=== PATIENT | female | born 1940 | race Caucasian/White ===

== ENCOUNTER 2017-08-30 16:28 | Inpatient (IN) | payer MEDICARE, BC, OTHER ==
[~2017-08-30] VITALS: Ht 157.5 cm; Wt 64.9 kg
[2017-08-30] MEDS ORDERED: CATAPRES0.1 MG PO (16:56)
[2017-08-30] MEDS ORDERED: COLACE100 MG PO (16:57)
[2017-08-30] MEDS ORDERED: ENOXAPARIN40 MG/0.1 SUBQ (16:59)
[2017-08-30] MEDS ORDERED: GABAPENTIN 100100 MG PO (17:02)
[2017-08-30] MEDS ORDERED: HYDRALAZINE 2525 MG PO (17:03)
[2017-08-30] MEDS ORDERED: KLOR-CON 1010 MEQ PO (17:03)
[2017-08-30] MEDS ORDERED: ONDANSETRON HCL4 M2 PO (17:04)
[2017-08-30] MEDS ORDERED: PRINIVIL20 M1 PO (17:04)
[2017-08-30] MEDS ORDERED: OXYCODONE HCL 55 MG PO (17:05)
[2017-08-30] MEDS ORDERED: MIRALAX17 GM PO (17:06)
[2017-08-30] MEDS ORDERED: SALONPAS PATCH1 EAC1 TOP (17:07)
[2017-08-30] MEDS ORDERED: VITAMIN D3400 UNIT PO (17:08)
[2017-08-30] MEDS ORDERED: SYSTANE ULTRA 010 ML OPHTHALMIC (17:09)
[2017-08-30 19:30] VITALS: BP 118/47
--- NOTE | 2017-08-31 01:38 | NUR ---
ASSUMED CARE AT ADMISSION TO ROOM 328 AT 1930 PER W/C. ASSIST FROM ER STAFF GETTING PATIENT FROM PRIVATE CAR TO W/C THEN THEY TRANSPORTED HER TO OUR FLOOR. UP WITH MOD ASSIST, GAIT BELT, WALKER, AND NWB TO LLE. VOIDED PER BSC. PATIENT VERY NERVOUS ABOUT TRANSFERRING. SUPPORT GIVEN. ABLE TO MOVE RIGHT FOOT TO PIVOT FROM BED TO BSC, BUT HAS TROUBLE MOVING BACKWARDS TO BED. ABLE TO LIFT LLE VERY EASILY. LLE HAS POSTERIOR SPLINT, DRESSING AND CECELIA WRAP; THIS NOT TO GET WET NOR DRESSING CHANGED. REPORTS THAT IN THE LAST MONTH SHE DID FALL AND GOT ASSIST TO GET UP. USED WALKER AT HOME. ALSO HAS KNEE SCOOTER THAT SHE HAS NOT HAD MUCH PRACTICE WITH; THIS PUT ASIDE UNTIL EVALUATED FROM THERAPIES. 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 PATIENT STATES SHE HAS HAD A ROTATOR CUFF TEAR ON HER RIGHT SHOULDER, BUT HAS NOT HAD IT REPAIRED. SHE STATES SHE HAS BEEN IN P.T. TRYING TO IMPROVE HER ROM. CURRENTLY SHE CAN ONLY RAISE HER ARM ABOUT SHOULDER HEIGHT. SHE HAS NEUROPATHY IN HER RIGHT HAND, AND IT APPEARS TO HAVE SLIGHT CONTRACTURE. ALSO STATES THAT HER MOTHER HAD TB WHEN SHE WAS A CHILD (STATES HER MOM WAS BORN IN 1905) BUT PATIENT WAS TESTED AND WAS NEGATIVE. PATIENT WAS SENT TO LIVE WITH HER GRANDPARENTS WHILE HER MOTHER GOT TREATMENT FOR HER TB. STATES THAT SHE SIGNED SOME ADVANCED DIRECTIVE PAPERS AT [facility], BUT SHE WAS SO SLEEPY THAT SHE WANTS TO SIGN ANOTHER SET NOW THAT SHE IS MORE ALERT. ASSESSMENT COMPLETED. PAPERS SIGNED. EDUCATED ABOUT REHAB ROUTINE. HOURLY ROUNDS CONTINUE. BED ALARM ON. CALL LITE IN REACH.
[2017-08-31 03:57] LABS: HEMATOCRIT 26.5 % (37.0-47.0); HEMOGLOBIN 8.9 gm/dL (12.0-15.0); MCH 31.6 pg (26.0-34.0); MCHC 33.8 g/dL (28.0-37.0); MCV 93.6 fL (80.0-100.0); MPV 8.3 fl. (7.2-11.1); RBC 2.83 mil/uL (4.20-5.00); RDW-CV 15.1 % (10.5-14.5); WBC 6.7 thou/uL (4.0-11.0)
[2017-08-31 04:20] LABS: CALCIUM 8.5 mg/dL (8.5-10.1)
--- NOTE | 2017-08-31 06:04 | NUR ---
SLEPT MUCH OF THE SHIFT. TURNS SELF, SLEPT ON SIDE WITH PILLOW PROPPING. LLE ELEVATED ON TWO PILLOWS. POST SPLINT C/D/I. VOIDED ONCE PER BSC. NO FURTHER C/O PAIN. HOURLY ROUNDS CONTINUE. BED ALARM ON. CALL LITE IN REACH.
[2017-08-31 08:30] VITALS: BP 112/35
[2017-08-31 11:10] VITALS: BP 111/48
--- NOTE | 2017-08-31 15:20 | NUR ---
ASSUMED CARE AT 0730. ALERT ORIENTED PLEASANT COOPERATIVE. HX OF L FOREFOOT REPAIR, HAS SPLINT AND ACEWRAP TO L LEG. NWBLLE. TRANSFERS WITH 1 ASSIST G BELT WALKER FROM W/C TO [facility] TO VOID, ABLE TO DO HYGEINE BUT NEEDS SOME ASSIST WITH CLOTHING ADJUSTMENTS L HAND HAS SOME NEUROPATHY PRESENT. MEDICATED X 2 WITH 5 MG. OXY IR BEFORE P.T. SESSIONS. ICE PACK APPLIED TO L UPPER LEG PRN. PROPELLS SELF IN W/C TO DR FOR MEALS. PARTICIPATING IN THERAPIES TODAY. FEEDS SELF APPETITE FAIR BREAKFAST GOOD AT LUNCH. RESTING IN BED AFTER THERAPIES COMPLETED.
[2017-08-31 20:00] VITALS: BP 113/47
--- NOTE | 2017-08-31 23:14 | NUR ---
ASSUMED CARE AT 1930. PATIENT RESTING IN BED WITH LLE ELEVATED ON TWO PILLOWS. ABLE TO LIFT LEG OFF BED AND ABLE TO GET BOTH LEGS INTO BED HERSELF. UP WITH MIN ASSIST TO RISE, NEEDS CUEING, GAIT BELT, WALKER. TO BR PER W/C THEN VOIDED PER TOILET. ABLE TO DO OWN HYGIENE AND APPLIED PERIPAD WITH SETUP. C/O PAIN, MEDICATED AT HS. SEE JUN. TAKES PILLS WHOLE WITH WATER. TOOK MIRILAX THIS PM IN [place]. HAD SLIGHT TEMP ELEVATION 100.2 MAX. GIVEN APAP AND I.S ENCOURAGED. EXTRA COVERS AND ROBE REMOVED (LEAVING TWO SHEETS AND BATH BLANKET COVERS). AT 2205 TEMP WAS 98.6. WHEN GETTING BACK INTO BED FROM TOILETING, PATIENT SWEPT AT CHUX ON BED STATING, "THERE IS A BUG THERE" NO BUG THERE, BUT THERE WAS A VERY SMALL BIT OF FUZZ THAT WOULD MATCH THE COLOR OF HER ROBE. DENIED OTHER VISUAL ISSUES. HOURLY ROUNDS CONTINUE. BED ALARM ON. CALL LITE IN REACH.
--- NOTE | 2017-09-01 05:17 | NUR ---
SLEPT MOST OF THE NIGHT. UP TO VOID ONLY ONCE AT HS. TURNS SELF. PREFERS TO LIE ON BACK WITH LLE ELEVATED ON TWO PILLOWS. NO C/O PAIN. HOURLY ROUNDS CONTINUE. BED ALARM ON. CALL LITE IN REACH.
[2017-09-01 07:30] VITALS: BP 119/41
--- NOTE | 2017-09-01 10:34 | NUR ---
Nutrition: Pt admitted to rehab s/p forefoot surgery R/T hammer toe. H/o renal insuff, OA, GERD, HTN. Pt is eating 100% of Regular diet. Wt: 144#. Low nutrition risk. Will follow weekly.
--- NOTE | 2017-09-01 13:36 | NUR ---
ASSUMED CARE AT 0730. ALERT ORIENTED PLEASANT COOPERATIVE. HX OF L FOREFOOT REPAIR. HAS SPLINT AND CECELIA WRAP TO L LOWER LEG C/D/I. C & S ADEQUATE TO L FOOT. TRANSFERS WITH 1 ASSIST G BELT WALKER, NWCUAUHTEMOC. USING TOILET PER W/C GRAB BAR STAND PIVOT TO TOILET. NEEDS MIN ASSIST TO DO CLOTHING ADJUSTMENTS. ABLE TO DO HYGEINE HAS NEUROPATHY RT. HAND. MEDICATED X 1 FOR L FOOT PAIN BEFORE P.T. SESSION THIS A.M. FEEDS SELF WITH SET UP TAKES MEDS WITHOUT DIFFICULTY. USES CALL LIGHT APPROPRIATELY FOR ASSISTANCE. UP IN RECLINER WITH FEET ELEVATED. PROPELLS SELF TO DR PER W/C FOR MEALS.
--- NOTE | 2017-09-01 15:44 | NUR ---
PT. TOOK MIRALAX IN [place] THIS AFTERNOON HASNT HAD BM SINCE 08/28/17. HOURLY ROUNDING COMPLETED.
[2017-09-01 19:58] VITALS: BP 136/47
--- NOTE | 2017-09-01 22:14 | NUR ---
ASSUMED CARE AT 1930. PATIENT RESTING IN BED WITH LLE UP ON THREE PILLOWS. TAKES PILLS WHOLE WITH WATER. DENIES PAIN AT THIS TIME. UP TO TOILET VIA W/C. HAD LARGE SOFT BM. STAND PIVOT WITH CUEING. ABLE TO DO HYGIENE AFTER VOIDING, BUT HAD TROUBLE WITH HYGIENE AFTER BM, WITH NURSING COMPLETING HYGIENE. WORKING ON BALANCE WITH NBW LLE, RT HAND NEUROPATHY INTERFERES WITH HOLDING ONTO WALKER FOR BALANCE, AND NEEDS HELP WITH CLOTHING ADJUSTMENTS DUE TO BALANCE AND NEUROPATHY OF RT HAND. HIGHLY MOTIVATED AND IS WORKING HARD TO GAIN STRENGTH. HAD QUESTIONS ABOUT DISCHARGE DATE AND PENDING FOLLOW UP APPOINTMENT WITH SURGEON. REINFORCED PRIOR EDUCATION ABOUT TEAM MEETINGS, AND THAT [facility] WILL MAKE ARRANGEMENTS FOR FOLLOWUP APPOINTMENTS. VERBALIZED UNDERSTANDING BUT NEEDS REINFORCEMENT. HOURLY ROUNDS CONTINUE. BED ALARM ON. CALL LITE IN REACH.
--- NOTE | 2017-09-02 06:12 | NUR ---
SLEPT MOST OF THE NIGHT. HAD ONE BM PER TOILET. VOIDS PER TOILET. TRANSFERS FROM BED TO W/C THEN TO TOILET. GETTING STRONGER, BUT HAS TROUBLE WITH BALANCE WITH NWB OF LLE AND ADJUSTING CLOTHING. ABLE TO DO HYGIENE. MEDICATED FOR PAIN WITH RETURN TO SLEEP. HOURLY ROUNDS CONTINUE. BED ALARM ON. CALL LITE IN REACH.
[2017-09-02 07:44] VITALS: BP 155/53
--- NOTE | 2017-09-02 14:35 | NUR ---
ASSUMED CARE AT 0730. ALERT ORIENTED PLEASANT COOPERATIVE. HX OF L FOREFOOT REPAIR, CECELIA WRAP AND SPLINT INTACT FROM L KNEE TO TOES C AND S ADEQUATE. TRANSFERS WITH 1 ASSIST G BELT WALKER NWBLLE. VOIDS IN TOILET AND CAN DO HYGEINE AND CLOTHING ADJUSTMENTS GIVEN TIME. USES CALL LIGHT APPROPRIATELY FOR ASSIST. PARTICIPATING IN THERAPIES AND PROPELLS SELF IN W/C TO DR FOR MEALS. LLE ELEVATED IN W/C MEDICATED X 1 FOR PAIN BEFORE P.T. SESSION THIS A.M. SISTER HERE LATE AFTERNOON VISITING PT. LIZ DO N.P. ROUNDED. APPETITE GOOD FEEDS SELF AND NEEDS OCCASSIONAL ASSIST TO CUT MEAT SHE HAS NEUROPATHY RT. HAND.
[2017-09-02 20:10] VITALS: BP 123/39
[2017-09-02 21:26] VITALS: BP 137/51
--- NOTE | 2017-09-03 01:55 | NUR ---
ASSUMED CARE @ 1919-09/02-SATURDAY.AWAKE IN BED W/POSTERIOR SPLINT IN PLACE LEFT LE WRAPPED W/ CECELIA BANDAGE.HOB UP.LEFT LE ALREADY UP ON 2 PILLOWS @ 1919.BED ALARM ALREADY ON @ 1919.BRP PER W/C W/ 1 PERSON.NWB LEFT LE OBSERVED ON ALL TRANSFERS.TEMP-99.0 @ 2009.99.4 ORAL @ 2125.RECHECKED @ .4 ORAL.SEE PAIN MANAGEMENT @ 2150.TRANSFERS W/ MIN ASSIST W/ 1 PERSON.BRP PER W/C @ NIGHT.IND W/ TOILET HYGIENE BUT NEEDS ASSIST W/ CLOTHING ADJUSTMENTS.ON HOURLY ROUNDS.
--- NOTE | 2017-09-03 05:27 | NUR ---
SLEEPING SINCE 2300 BUT AWAKE 3X-2X FOR BRP PER W/C & ONCE @ 0400-TO REQUEST FOR PAIN MED.TOOK ONLY 90% COKE HS SNACKS.BRP X5-PER W/C.
[2017-09-03 08:11] VITALS: BP 140/56
--- NOTE | 2017-09-03 17:40 | NUR ---
SW met with pt to complete initial assessment, introduce self, and SW role. Plan for pt to dc home with sister; pt sister was bedside. Pt has cane, rolling walker, 4 ww with a seat, transport wc. Pt does not have any history of HH or SNF. SW oriented pt to rehab unit and discussed team conferences on Wednesdays. SW to continue to follow to assist with safe dc planning.
[2017-09-03 20:00] VITALS: BP 128/48
--- NOTE | 2017-09-04 05:37 | NUR ---
ASSUMED PT CARE AT 1930. PT ALERT AND ORIENTED X4, POLITE AND COOPERATIVE WITH CARES. PT LLE WITH POSTERIOR SPLINT AND WRAPPED WITH CECELIA BANDAGE. GAUZE DRESSING C/D/I. PT NWB TO LLE, OBSERVED ON ALL TRANSFERS, UP WITH MIN ASSIST OF ONE PERSON TO WHEELCHAIR. PT HAS BRP, UP X4 OVERNIGHT TO VOID. STOOL X2 THIS SHIFT. PT DOES OWN PERICARE BUT NEEDS ASSIST WITH CLOTHING ADJUSTMENTS. PRN PAIN MEDICATION TWICE THIS SHIFT FOR LEFT FOOT PAIN. CALL LIGHT AND FREQUENTLY USED ITEMS WITHIN REACH. USES CALL LIGHT APPROPRIATELY. HOURLY ROUNDING IN PROGRESS, WILL CONTINUE TO MONITOR.
[2017-09-04 08:00] VITALS: BP 127/47
--- NOTE | 2017-09-04 15:00 | NUR ---
SW met with pt to review team conference summary. Plan for pt to remain on rehab unit and continue therapies with team to reteam on Monday 09/11 with pt to dc home with sister on 09/12 and with services to follow. SW discussed team's recommendation for pt to be wc level at home; SW to arrange for order of wc. Pt has a BSC that she borrowed from a friend but she says she hopes she can get into her bathroom. Pt to have follow up ortho appt on Saturday 09/09 at 2:00pm at [facility]; SW to arrange transportation. Pt possibly could utilize services of [facility]. SW to follow up to assist with safe dc planning.
--- NOTE | 2017-09-04 18:34 | NUR ---
ASSUMED CARE AT 0730 PATIENT ALERT/ORIENTED, PAIN MEDS GIVEN X2 THIS SHIFT WITH GOOD RESULTS, TIME CHANGES TO PAIN MEDS NOTED/ORDERED BY MD. UP WITH ASSIST OF ONE, NWB TO LEFT LEG, CAST INTACT, TOES PINK/WARM. PARTICIPATED IN ALL THERAPIES TODAY, TO DINING ROOM FOR MEALS, BED/CHAIR ALARMS IN PLACE, CALL LIGHT IN REACH. HOURLY ROUNDING COMPLETED.
[2017-09-04 20:45] VITALS: BP 129/46
--- NOTE | 2017-09-05 05:47 | NUR ---
PT SLEPT FAIRLY WELL OVERNIGHT, UP TO BR TO VOID 5X THIS SHIFT. UP WITH GB TO WHEEL CHAIR WITH MIN SBA AND INTO BR TO VOID. HARD SPLINT CDI TO LBLE, NWB STATUS MAINTAINED TO LLE. OXY IR GIVEN X2 FOR CO LLE PAIN THIS SHIFT WITH GOOD RELIEF. SMALL BM OVERNIGHT, HEMORRHOIDS WITH SMALL AMOUNT OF BLEEDING. LLE ELEVATED ON PILLOW WHILE PT IN BED. ABLE TO USE CALL LITE AND MAKE NEEDS KNOWN, BED ALARM ON FOR SAFETY OVERNIGHT.
[2017-09-05 07:47] VITALS: BP 171/49
[2017-09-05 07:48] VITALS: BP 169/47
--- NOTE | 2017-09-05 15:20 | NUR ---
ASSUMED CARE AT 0730 PATIENT ALERT/ORIENTED, PAIN MEDS GIVEN FOR LEFT LEG PAIN WITH FAIR RELIEF, UP WITH ASSIST OF ONE AND WALKER, NWB TO LEFT LEG. PARTICIPATED IN ALL THERAPIES TODAY, TO DINING ROOM FOR MEALS, BED/CHAIR ALARMS IN PLACE, CALL LIGHT IN REACH, HOURLY ROUNDING COMPLETED.
[2017-09-05 20:22] VITALS: BP 114/39
--- NOTE | 2017-09-06 00:33 | NUR ---
ASSUMED CARE AT 1930. PATIENT RESTING IN BED WITH LT LEG UP ON TWO PILLOWS. UP WITH ONE, GAIT BELT, WALKER, STAND PIVOT. NWB LLE. TO TOILET VIA W/C. MUCH IMPROVED SINCE THE WEEKEND. ABLE TO ADJUST CLOTHING PER SELF WHILE HOLDING ONTO GRAB BARS. MUCH MORE CONFIDENCE. MEDICATED FOR PAIN AT HS. SEE JUN. HOURLY ROUNDS CONTINUE. BED ALARM ON. CALL LITE IN REACH.
--- NOTE | 2017-09-06 05:44 | NUR ---
SLEPT MOST OF THE NIGHT WITH LEFT LEG UP ON THREE PILLOWS. POST SPLINT REMAINS C/D/I. TOES PINK. MEDICATED FOR PAIN TWICE WITH RELIEF. UP TO VOID TWICE, TO BATHROOM VIA W/C THEN STAND PIVOTS TO TRANSFER. STAND PIVOTS BACK TO BED. CHANGES OWN POSITIONS. HOURLY ROUNDS CONTINUE. BED ALARM ON. CALL LITE IN REACH.
[2017-09-06 08:50] VITALS: BP 138/45
--- NOTE | 2017-09-06 15:03 | NUR ---
ASSUMED CARE AT 0730. ALERT ORIENTED PLEASANT COOPERATIVE HX OF L FOREFOOT REPAIR, HAS POSTERIOR SPLINT AND CECELIA WRAP TP L LEG. ELEVATES WITH LEG REST ON W/C. TRANSFERS WITH MIN ASSIST G BELT FROM BED TO W/C FOR BREAKFAST. FEEDS SELF TAKES MEDS WITHOUT DIFFICULTY. MEDICATED X 1 FOR L LEG PAIN BEFORE THERAPIES STARTED. USES CALL LIGHT APPROPRIATELY FOR ASSISTANCE.
--- NOTE | 2017-09-06 17:15 | NUR ---
ASHLYN called [employer] and arranged transportation for pt appt on September,. Pt to be picked up at 12:45pm and arrive at 1:30 pm for 2:00pm appt at [facility] and then for transport to return pt to hospital. Pt and pt sister aware of plan.
[2017-09-06 20:27] VITALS: BP 128/45
--- NOTE | 2017-09-07 02:39 | NUR ---
ASSUMED CARE @ 1934-09/06-SAT.SITS IN W/C DOING CROSS STITCH W/ LEFT LE UP. POSTERIOR SPLINT IN PLACE LEFT LE.NWB LEFT LE OBSERVED.ASSISTED TO BED BY BALLET PROFESSOR @ 2129.HOB UP.LEFT LE UP ON 2 PILLOWS.BED ALARM PUT ON @ 2129.SEE PAIN MANAGE- MENT @ 7679.ON HOURLY ROUNDS.BALLET PROFESSOR DOING ODD HOUR ROUNDS.
--- NOTE | 2017-09-07 05:29 | NUR ---
SLEEPING SINCE 0.BRP PER W/C X3 W/ MIN.ASSIST.TOOK ALL [place] W/ ICE HS SNACK.
[2017-09-07 07:52] VITALS: BP 153/74
--- NOTE | 2017-09-07 18:34 | NUR ---
ASSUMED CARE AT 0730 PATIENT ALERT/ORIENTED, PAIN MEDS GIVEN X2 THIS SHIFT WITH GOOD RELIEF. CAST TO LEFT LEG, NWB, PARTICIPATED IN ALL THERAPIES TODAY, TO DINING ROOM FOR MEALS, BED/CHAIR ALARMS IN PLACE, CALL LIGHT IN REACH, HOURLY ROUNDING COMPLETED. UP WITH STANDBY ASSIST, PROPELS SELF IN W/C TO DINING ROOM
[2017-09-07 20:22] VITALS: BP 121/58
--- NOTE | 2017-09-08 00:55 | NUR ---
ASSUMED CARE @ -SAT.SITS IN W/C WATCHING TV W/ LEFT LE UP.POSTERIOR SPLINT IN PLACE LEFT LE.NWB LEFT LE OBSERVED DURING ALL TRANSFERS.MIN ASSIST FOR ALL TRANSFERS & TOILETING.ASSISTED TO BED @ 2039.HOB UP.LEFT LE ELEVATED ON 2 PILLOWS.BED ALARM PUT ON @ 2039.SEE PAIN MANAGEMENT @ 2318.ON HOURLY ROUNDS.STAGE SETTING PAINTER APPRENTICE DOING ODD HOUR ROUNDS.
--- NOTE | 2017-09-08 05:19 | NUR ---
SLEEPING SINCE 2200.AWAKE @ INTERVALS FOR BRP PER W/C X5.TOOK ALL LEMON [place] SODA W/ ICE HS SNACK.
[2017-09-08 07:52] VITALS: BP 172/48
--- NOTE | 2017-09-08 18:22 | NUR ---
ASSUMED CARE AT 0730 PATIENT ALERT/ORIENTED UP WITH ASSIST OF ONE AND GAIT BELT, STAND PIVOT TO W/C, NWB TO LLE. PAIN MEDS GIVEN TODAY WITH GOOD RELIEF. BED/CHAIR ALARMS IN PLACE, CALL LIGHT IN REACH, HOURLY ROUNDING COMPLETED. TO DINING ROOM FOR MEALS.
[2017-09-08 20:27] VITALS: BP 147/53
--- NOTE | 2017-09-09 00:51 | NUR ---
ASSUMED CARE @ 1917-09/08-SATURDAY.SITS IN W/C @ BEDSIDE W/ LEFT LE UP.SEE PAIN MANAGEMENT @ 1944.MIN ASSIST FOR ALL TRANSFERS & TOILETING.NWB LEFT LE OBSERVED.CRYING DUE TO PAIN.CLAIMS TOLD SOMEBODY THAT SHE NEEDED PAIN MED ON DAYSHIFT.INSTRUCTED TO CALL BACK IF PAIN MED NOT GIVEN YET.EXPLAINED THAT THE PERSON MIGHT HAVE FORGOTTEN TO TELL RN ABOUT IT.HOB UP & LEFT LE ELEVATED ON 2 PILLOWS WHILE IN BED.BED ALARM PUT ON @ 2034.ON HOURLY ROUNDS.SOLID WASTE DIVISION SUPERVISOR DOING ODD HOUR ROUNDS.
--- NOTE | 2017-09-09 05:28 | NUR ---
SLEEPING SINCE 2199.AWAKE @ INTERVALS FOR BRP PER W/C W/ MIN ASSIST X 5. REFUSED HS SNACK.TO GO [facility] TO SEE ORTHOPEDIC TODAY 09/09-SATURDAY.TO LEAVE @ 1330.
[2017-09-09 08:00] VITALS: BP 168/46
--- NOTE | 2017-09-09 16:51 | NUR ---
SW faxed completed order for wc and progress note to [facility] and followed up to confirm acceptance of referral and [facility] to deliver wc to pt prior to pt dc on . SW to continue to follow to arrange HH and assist with any other dc planning needs.
--- NOTE | 2017-09-09 18:39 | NUR ---
ASSUMED CARE AT 0730 PATIENT/ORIENTED, PAIN MEDS GIVEN REQUESTED, PARTICIPATED IN ALL THERAPIES TODAY, TO DINING ROOM FOR MEALS, BED/CHAIR ALARMS IN PLACE, CALL LIGHT IN REACH, HOURLY ROUNDING COMPLETED. PATIENT LEFT FOR ORTHO APPOINTMENT AT [facility] AT 1245 RETURNED AT 1545, NEW CAST TO LEFT LEG IN PLACE, RETURN APPOINTMENT IN 10 DAYS.
[2017-09-09 19:56] VITALS: BP 150/39
--- NOTE | 2017-09-10 05:18 | NUR ---
ASSUMED PT CARE AT 1930. PT ALERT AND ORIENTED X4, POLITE AND COOPERATIVE WITH CARES. PT NWB TO LLE, CAST IN PLACE. UP SBA, GAIT BELT AND WHEELCHAIR. PT HAS BRP, UP SEVERAL TIMES OVERNIGHT TO VOID. NO STOOL THIS SHIFT. PT DOES OWN PERICARES. PRN PAIN MEDICATION TWICE THIS SHIFT FOR LEFT FOOT PAIN. CALL LIGHT AND FREQUENTLY USED ITEMS WITHIN REACH. USES CALL LIGHT APPROPRIATELY. HOURLY ROUNDING IN PROGRESS, WILL CONTINUE TO MONITOR.
[2017-09-10 08:00] VITALS: BP 147/72
--- NOTE | 2017-09-10 11:11 | NUR ---
SW called and spoke with pt sister Rosa to prepare for team conference and discuss dc planning. Pt sister also scheduled family training/car transfer for Saturday at 10:30 am. Pt sister did not have any other questions or concerns. WC to be delivered by dc date of 09/12. SW to discuss with pt and arrange HH. SW to continue to follow.
--- NOTE | 2017-09-10 16:13 | NUR ---
ASSUMMED CARE OF PT AT 0730, PT TRANSFERS WITH A STAND PIVOT ASSIST OF 1, GB, PT COMPLAINS OF PAIN IN LEFT FOOT, MEDICATED PER ORDERS, CAST TO LEFT FOOT INTACT, TAKING FOOD AND FLUIDS WELL, PARTICIPATED IN ALL THERAPIES, WHEELS SELF TO DININGROOM FOR LUNCH, HOURLY ROUNDING COMPLETED, ASSESSMENT COMPLETE, WILL CONTINUE TO MONITOR.
[2017-09-10 19:30] VITALS: BP 134/48
--- NOTE | 2017-09-10 20:00 | NUR ---
SITTING UP IN RECLINER WITH LEGS ELEVATED WATCHING TV. PAIN MED GIVEN FOR C/O LEFT FOOT PAIN RATED "7". TOOK MEDS WHOLE ALL AT ONCE WITH WATER. CAST TO LEFT LEG INTACT. PINS TO LEFT TOES APPEAR INTACT.
--- NOTE | 2017-09-11 05:33 | NUR ---
UP X TWO DURING THE NIGHT TO THE BATHROOM TO VOID. TRANSFERS FROM BED TO WHEELCHAIR WITH SBA, GAITBELT, STAND, PIVOT. PROPELS SELF TO THE BATHROOM AND TRANSFERS SELF TO TOILET WITH SBA, STAND, PIVOT. NON WEIGHT BEARING TO LEFT LOWER EXTREMITY. GAVE PAIN MED X ONE DURING THE NIGHT. RATES LEFT FOOT PAIN AT A "7" BUT ONLY WANTS TO TAKE ONE OXY IR AT A TIME. RELIEF OBTAINED. HOURLY ROUNDING IN PROGRESS.
[2017-09-11 08:07] VITALS: BP 125/41
--- NOTE | 2017-09-11 16:11 | NUR ---
ASSUMMED CARE OF PT AT 0730, PT ALERT AND ORIENTED, PT STAND PIVOT TRANSFERS WITH SBA, GB, COMPLAINS OF PAIN IN LEFT LEG, MEDICATED PER ORDER, CAST TO LEFT LE INTACT, LEG ELEVATED, NWB STATUS MAINTAINED, TAKING FOOD AND FLUIDS WELL, VOIDS PER TOILET, WHEEL SELF TO DININGROOM, PARTICIPATED IN ALL THERAPIES, HOURLY ROUNDING COMPLETED, ASSESSMENT COMPLETE, WILL CONTINUE TO MONITOR.
--- NOTE | 2017-09-11 16:21 | NUR ---
SW reviewed team conference summary with pt. Plan for pt to dc home with sister tomorrow, September 12. Pt preference for [facility] HH services to follow. SW faxed [facility] the face sheet and [facility] and they accepted referral. Final orders and med list to be faxed to [facility] at fax [phone]. Pt plans to call the fire department to get into the home as she has steps to enter and sister unable to bump up and pt unable to manuever steps on her own due to mobility limitations. Pt has wc through [facility]. Pt sister to provide pt ride home.
[2017-09-11 19:50] VITALS: BP 134/48
--- NOTE | 2017-09-12 01:19 | NUR ---
ASSUMED CARE @ 1924-.SITS IN RECLINER W/ SHORT LEG CAST LEFT LEG & LEFT LEG UP.DOING CROSS STITCH.SEE PAIN MANAGEMENT @ 2157.NWB LEFT LE OBSERVED ON ALL TRANSFERS.HOB UP IN BED.LEFT LE ELEVATED ON 2 PILLOWS WHILE IN BED.BED ALARM PUT ON @ 2200.ON HOURLY ROUNDS.TUGBOAT DISPATCHER DOING ODD HOUR ROUNDS.
--- NOTE | 2017-09-12 05:36 | NUR ---
SLEEPING SINCE -.TOOK ONE BANANA HS SNACK.BRP PER W/C W/ ASSIST X3.TEMP @ 1950-99 ORAL.TEMP RE-CHECKED @ 0300-97.8 ORAL.FOR DISCHARGE TODAY-.
[2017-09-12 08:00] VITALS: BP 137/41
[2017-09-12] MEDS ORDERED: ASPIRIN325 PO (13:04)
[2017-09-12 13:08] VITALS: BP 137/41
[2017-09-12 13:29] VITALS: BP 137/41
--- NOTE | 2017-09-12 14:27 | NUR ---
ASSUMMED CARE OF PT AT 0730, PT ALERT AND ORIENTED, PT TRANSFERS WITH SBA GB WITH STAND PIVOT, PT COMPLAINS OF PAIN IN LEFT LEG, MEDICATED PER ORDERS, CAST TO LEFT LEG INTACT, TAKING FOOD AND FLUIDS WELL, VOIDS PER TOILET, PARTICIPATED IN ALL THERAPIES, HOURLY ROUNDING COMPLETED, ASSESSMENT COMPLETE, ORDERS OBTAINED FOR DISCHARGE, DISCHARGE EDUCATION DONE WITH PT AND HER SISTER, DISCUSSED FOLLOW UP APPTS, MEDICATIONS, HOME HEALTH, WHEN TO CALL PHYSICIAN, CARE OF CAST, NWB STATUS, FALL PRECAUTIONS, PT DISCHARGED TO MAIN ENTRANCE WITH BELONGINGS AND WHEELCHAIR.
--- NOTE | 2017-09-25 13:38 | PLAN ---
[facility] [address] [place] [address] REHAB UNIT PLAN OF CARE Name: MOOKIE SEGURA Room: [address] IN [facility]#: [id number] Admission: 08/30/17 Attend Phys: Renetta Quiñones DO Discharge: 09/12/17 Date of : 36 Report #: [id number] THIS REPORT FOR: //name// CC: Alexandre Quiñones DATE OF SERVICE: 08/31/2017 OVERALL PLAN OF CARE This is a female admitted to inpatient rehabilitation to facilitate safe discharge home, status post acute hospitalization. MEDICAL PROGNOSIS: Good. REHABILITATION PROGNOSIS: Good. Estimated length of time and stay is 12-14 days with discharge disposition to the home setting. Previous level of function, modified independent to independent with activities of daily living. Current level of function, minimum to moderate assistance depending on therapy, activity and time of day. Physical therapy will see the patient 60-90 minutes per day, 5 days per week working on upper and lower body strength, balance, coordination, navigation. Occupational therapy will work with the patient 60-90 minutes per day, 5 days per week working on upper and lower body strength, balance, coordination, navigation, bathing, dressing and toileting. This is an overall plan of care, may change from time to time. We will team weekly and make changes to plan of care as needed. <ELECTRONICALLY SIGNED> By: Renetta Quiñones DO 09/25/17 1338 1411 [id number] Quiñones DO /yaneth
--- NOTE | 2017-09-25 13:38 | H ---
[place] [address] HISTORY AND PHYSICAL Name: MOOKIE SEGURA Room: [address] IN [facility]#: [id number] Admission: 08/30/17 Attend Phys: Renetta Quiñones DO Discharge: 09/12/17 Date of : 36 Report #: [id number] THIS REPORT FOR: //name// CC: Alexandre Quiñones DATE OF SERVICE: 08/30/2017 This is a 76 year old female admitted to inpatient rehabilitation to facilitate safe discharge home post left forefoot repair and reconstruction on 08/28/17. She is nonweightbearing on the left lower extremity. Previous level of function was modified independant to independant with ADLs. Current level of function in minimum assistance of 1 to moderate assistance of 2 depending on therapy, activity and time of day. There have been no changes since the pre-admission screening. Estimated length of stay is 12-14 days with discharge to the home setting where she has a supportive sister, a ramp, wheelchair and walker. 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 Physical Exam: AO NAD VSS Head atraumatic Eyes PERRLA Skin: warm and dry, incision is freshly dressed [facility] [address] [place] [address] HISTORY AND PHYSICAL Name: MOOKIE SEGURA Room: [address] IN [facility].#: [id number] Admission: 08/30/17 Attend Phys: Renetta Quiñones DO Discharge: 09/12/17 Date of : 36 Report #: [id number] MSK: no clubbing or edema Neuro: 08/10 strength BLUE and BLLE Assessment: Repair and reconstruction of a L forefoot deformity, NWB LLE Ongoing post operative pain Righ hand neuropathy multiple medical issues Plan: PT, OT, RN, CM and HMS to evaluate and treat POC is pending and Team meeting weekly NWB LLE Med rec completed <ELECTRONICALLY SIGNED> By: Renetta Quiñones DO 09/25/17 1338 1410 [id number] Quiñones DO /nt
--- NOTE | 2017-10-07 12:16 | D ---
[facility] [address] [place] [address] DISCHARGE SUMMARY Name: MOOKIE SEGURA Room: [address] IN [facility]#: [id number] Admission: 08/30/17 Attend Phys: Renetta Quiñones DO Discharge: 09/12/17 Date of : 36 Report #: [id number] THIS REPORT FOR: //name// CC: Alexandre Quiñones DATE OF SERVICE: 09/12/2017 DISCHARGE DIAGNOSES: Post left forefoot surgical repair and reconstruction. DISCHARGE DISPOSITION: Discharged to home with home health PT, OT and nursing. Prescriptions for oxycodone and gabapentin were given for 1 month's time. The patient did progress well during therapies during her stay and remained nonweightbearing on the left lower extremity. 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 DISCHARGE PHYSICAL EXAMINATION: GENERAL: Alert, oriented, no apparent distress. VITAL SIGNS: Reviewed and are stable. HEENT: Atraumatic, normocephalic. Pupils equal, round, reactive. ABDOMEN: Soft, nontender, nondistended. NEUROLOGIC: Cranial nerves 2-12 are grossly intact. No focal neuro deficits. <ELECTRONICALLY SIGNED> By: Renetta Quiñones DO 10/07/17 1216 1433 Ruben Duncan Ishmael, DO /nt
== END 2017-09-12 14:00 | disposition home health service (06) | DRG 74 ==
LOC: M.REH 16:28
PROVIDERS: ADMIT Physical Medicine & Rehabilitation
DX: G62.89 Other specified polyneuropathies (principal); M21.962 Unspecified acquired deformity of left lower leg; G89.18 Other acute postprocedural pain; I10 Essential (primary) hypertension; M19.90 Unspecified osteoarthritis, unspecified site; M85.80 Other specified disorders of bone density and structure, unspecified site; D64.9 Anemia, unspecified; K21.9 Gastro-esophageal reflux disease without esophagitis; M48.061 Spinal stenosis, lumbar region without neurogenic claudication; Z60.2 Problems related to living alone; M20.40 Other hammer toe(s) (acquired), unspecified foot; M20.42 Other hammer toe(s) (acquired), left foot; M20.41 Other hammer toe(s) (acquired), right foot; Z79.899 Other long term (current) drug therapy; Z88.0 Allergy status to penicillin; Z88.8 Allergy status to other drugs, medicaments and biological substances; Z98.49 Cataract extraction status, unspecified eye; Z98.42 Cataract extraction status, left eye; Z98.41 Cataract extraction status, right eye